=== PATIENT | male | born 1990 | race Caucasian/White ===

== ENCOUNTER 2022-11-02 20:25 | Emergency (ER) | payer OTHER ==
[~2022-11-02] VITALS: Ht 177.8 cm; Wt 81.6 kg
[2022-11-02 20:30] VITALS: BP 120/80
--- NOTE | 2022-11-02 20:35 | NUR ---
BIBA TO BED #5
--- NOTE | 2022-11-02 20:45 | NUR ---
32 Y/O M PRESENTS WITH TWO EPISDOES OF SYNCOPE TODAY IN BATHROOM AT HOME. PT STATED FAMILY FOUND HIM, AND HE SMOKED WEED TODAY AND TOOK COCAINE TWO DAYS AGO. PT DENIES ANY NVD. PT DENIES ANY PAIN. PMH-PT DENIES NKA
--- NOTE | 2022-11-02 21:17 | NUR ---
EKG BEING DONE
--- NOTE | 2022-11-02 21:20 | NUR ---
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
--- NOTE | 2022-11-02 21:48 | NUR ---
Patient being evaluated by physician at bedside.
[2022-11-02 22:00] VITALS: BP 121/83
--- NOTE | 2022-11-02 22:00 | NUR ---
Patient discharged with v/s stable. Written and verbal after care instructions given and explained. Patient verbalized understanding. Ambulatory with steady gait. All questions addressed prior to discharge. Advised to follow up with PMD.
== END 2022-11-02 22:00 | disposition home or self-care (01) ==
LOC: MED 20:25
DX: R55 Syncope and collapse (principal); F12.90 Cannabis use, unspecified, uncomplicated; Z72.89 Other problems related to lifestyle
CPT/HCPCS: 93005; 99283